=== PATIENT | male | born 1990 | race African-American/Black ===

== ENCOUNTER 2020-06-15 23:50 | Emergency (ER) | payer OTHER ==
[2020-06-15 23:56] VITALS: BP 124/67; PULSE 60; RESP 18; TEMP 98.4
[2020-06-16] MEDS ORDERED: SULFAMETHOX-TMP 800-160MG 1 EACH TAB PO STA (00:21)
[2020-06-16] MEDS ORDERED: CEPHALEXIN 500 MG CAP PO STA (00:21)
--- NOTE | 2020-06-16 00:27 | ED ---
Skin/Abscess/FB HPI - General Chief complaint: Skin/Abscess/Foreign Body Stated complaint: Finger Infection Time Seen by Provider: 06/16/20 00:03 Source: patient Mode of arrival: ambulatory Limitations: no limitations - History of Present Illness Initial comments: Patient is a 29-year-old male presenting to the emergency Department with complaints of a possible skin infection on his right hand. Patient states about one week ago he cut his right pinky finger on a piece of cardboard box. Patient states he has been cleaning the wound daily but states over the past 2 days he noticed swelling and redness starts in his pinky. He states it does hurt to fully flex the pinky but he is able to extend it all the way. He denies any fever or chills, no nausea or vomiting. He is up-to-date with his tetanus vaccine. He has no further complaints at this time. - Related Data Previous Rx's Medication Instructions Recorded Cephalexin [Keflex] 500 mg PO Q6HR 7 Days #28 cap 06/16/20 Sulfamethox-Tmp 800-160Mg [Bactrim 1 each PO Q12HR 7 Days #14 tab 06/16/20 Ds] Allergies Allergy/AdvReac Type Severity Reaction Status Date / Time No Known Allergies Allergy Verified 06/15/20 23:56 Review of Systems ROS Statement: Those systems with pertinent positive or pertinent negative responses have been documented in the HPI. ROS Other: All systems not noted in ROS Statement are negative. Past Medical History Past Medical History: No Reported History History of Any Multi-Drug Resistant Organisms: None Reported Past Surgical History: No Surgical Hx Reported Past Psychological History: No Psychological Hx Reported Smoking Status: Current every day smoker Past Alcohol Use History: Occasional Past Drug Use History: Marijuana General Exam - General Exam Comments Initial Comments: GENERAL: Patient is well-developed and well-nourished. Patient is nontoxic and in no acute distress. HEAD: Atraumatic, normocephalic. EYES: Pupils equal round and reactive to light, extraocular movements intact, sclera anicteric, conjunctiva are normal. Eyelids were unremarkable. ENT: TMs normal, nares patent, oropharynx clear without exudates. Moist mucous membranes. NECK: Normal range of motion, supple without lymphadenopathy or JVD. LUNGS: Unlabored respirations. Breath sounds clear to auscultation bilaterally and equal. No wheezes rales or rhonchi. HEART: Regular rate and rhythm without murmurs, rubs or gallops. ABDOMEN: Soft, nontender, normoactive bowel sounds. No guarding, no rebound. No masses appreciated. : Deferred MUSCULOSKELETAL: Patient has decreased active flexion of the right pinky, full extension. He has neurovascular intact. There is some mild swelling and erythema present of the proximal portion of the fifth digit. No clubbing or cyanosis. NEUROLOGICAL: Patient is alert and oriented x 3. Motor and sensory are also intact. Cranial nerves II through XII grossly intact. Symmetrical smile. Normal speech, normal gait. PSYCH: Normal mood, normal affect. SKIN: Warm, Dry, normal turgor. Patient has some mild erythema and swelling of the proximal portion of the fifth digit of the right hand, there is no swelling of the right hand were no spreading erythema. He has neurovascular intact. There is a small wound to the medial aspect of the fifth digit, this is draining purulent fluid. Limitations: no limitations Course Vital Signs 06/15/20 23:54 Temperature 98.4 F Pulse Rate 60 Respiratory 18 Rate Blood Pressure 124/67 O2 Sat by Pulse 100 Oximetry Medical Decision Making - Medical Decision Making Patient is a 29-year-old male here with cellulitis of the fifth digit of the right hand. He has a small wound from a cardboard box one week ago, noticed swelling and erythema to days ago. No fever or chills, he does have full extension, decrease flexion. I discussed with patient that there is concern for spreading infection into the tendons. Patient states he does not live around here and wishes to start oral antibiotics. He states he'll follow-up with his regular doctor. Patient will be given first dose of Bactrim and Keflex the ER. I will continue him on these 2 medications as well. He is stable for discharge. Strict return parameters were discussed with the patient he verbalizes understanding. Case discussed with Dr. Quach. Disposition Clinical Impression: Cellulitis of right little finger Disposition: HOME SELF-CARE Condition: Stable Instructions (If sedation given, give patient instructions): Cellulitis (ED) Additional Instructions: Please return to the Emergency Department if symptoms worsen or any other concerns. Take both antibiotics as prescribed. Keep area clean and dry. Use warm compresses to the area to initiate further drainage of the wound. Please follow-up with your regular doctor as discussed or local ER if symptoms worsen. Prescriptions: Sulfamethox-Tmp 800-160Mg [Bactrim Ds] 1 each PO Q12HR 7 Days #14 tab Cephalexin [Keflex] 500 mg PO Q6HR 7 Days #28 cap Is patient prescribed a controlled substance at d/c from ED?: No Referrals: None,Stated [Primary Care Provider] - 1-2 days
== END 2020-06-16 00:42 | disposition home or self-care (01) ==
LOC: EC 23:50
DX: L03.011 Cellulitis of right finger (principal); F17.200 Nicotine dependence, unspecified, uncomplicated
CPT/HCPCS: 99283

== ENCOUNTER 2020-06-16 20:02 | Emergency (ER) | payer OTHER ==
[2020-06-16 20:16] VITALS: BP 135/66; PULSE 68; RESP 18; TEMP 98
--- NOTE | 2020-06-16 20:46 | ED ---
Extremity Problem HPI - General Chief complaint: Extremity Problem,Nontraumatic Stated complaint: Finger Injury Time Seen by Provider: 06/16/20 20:37 Source: patient Mode of arrival: ambulatory Limitations: no limitations - History of Present Illness Initial comments: 29-year-old male presenting to the emergency department with a chief complaint of infection of the finger. Patient states he was in emergency department yesterday and started on 2 antibiotics in the emergency department. Patient states she is yet to obtain the prescriptions. Patient states after discharge, he went to sleep and when he woke up the next day, he noticed there was quite pustular discharge coming from the affected side. States it is not painful as it was initially. He denies any numbness or tingling. Denies any night sweats fevers or chills. Denies liver range of motion of the finger. - Related Data Previous Rx's Medication Instructions Recorded Cephalexin [Keflex] 500 mg PO Q6HR #40 cap 06/16/20 Cephalexin [Keflex] 500 mg PO Q6HR 7 Days #28 cap 06/16/20 Sulfamethox-Tmp 800-160Mg [Bactrim 1 each PO Q12HR #20 tab 06/16/20 Ds] Sulfamethox-Tmp 800-160Mg [Bactrim 1 each PO Q12HR 7 Days #14 tab 06/16/20 Ds] Allergies Allergy/AdvReac Type Severity Reaction Status Date / Time No Known Allergies Allergy Verified 06/15/20 23:56 Review of Systems ROS Statement: Those systems with pertinent positive or pertinent negative responses have been documented in the HPI. ROS Other: All systems not noted in ROS Statement are negative. Past Medical History Past Medical History: No Reported History History of Any Multi-Drug Resistant Organisms: None Reported Past Surgical History: No Surgical Hx Reported Past Psychological History: No Psychological Hx Reported Smoking Status: Current every day smoker Past Alcohol Use History: Occasional Past Drug Use History: Marijuana General Exam Limitations: no limitations General appearance: alert, in no apparent distress Head exam: Present: atraumatic, normocephalic, normal inspection Eye exam: Present: normal appearance, PERRL, EOMI Pupils: Present: normal accommodation ENT exam: Present: normal exam, normal oropharynx, mucous membranes moist Neck exam: Present: normal inspection, full ROM. Absent: tenderness Respiratory exam: Present: normal lung sounds bilaterally. Absent: respiratory distress, wheezes, rales Cardiovascular Exam: Present: regular rate, normal rhythm, normal heart sounds Extremities exam: Present: full ROM, tenderness (Very mild), normal capillary refill. Absent: normal inspection (Small abscess noted on the lateral aspect of the right fifth digit. There is already some white pustular discharge noted. No cellulitis.), pedal edema, joint swelling, calf tenderness Back exam: Present: normal inspection, full ROM. Absent: CVA tenderness (R), CVA tenderness (L) Neurological exam: Present: alert, oriented X3 Psychiatric exam: Present: normal affect, normal mood Skin exam: Present: warm, dry, intact, normal color Course Vital Signs 06/16/20 20:12 Temperature 98.0 F Pulse Rate 68 Respiratory 18 Rate Blood Pressure 135/66 O2 Sat by Pulse 97 Oximetry Procedures - Incision & Drainage Consent Obtained: verbal consent Indication: Abscess Site: hand Size (cm): 1 I&D Cleaning Method: Alcohol Wipe Sterile Field Used?: No Scalpel Used: #11 Needle Aspiration Performed?: No Irrigation Performed?: No I&D Drainage Obtained: Pus Culture Obtained?: No Patient Tolerated Procedure: well, no complications Medical Decision Making - Medical Decision Making 29-year-old male presenting to the emergency department with a chief complaint of an infection of the finger. On physical examination, patient has a small abscess forming at the affected site on the medial aspect of the right fifth digit. I used a small 18-gauge needle and was able to perform small incision and drainage. I was able to remove most of the pustular discharge. Patient reported relief in symptoms. Patient is ready on Keflex and Bactrim. I advised him to continue taking the medication. He requested for a second her prescription. Return parameters were thoroughly discussed with patient is understanding and agreeable. Case discussed with physician. Disposition Clinical Impression: Abscess Disposition: HOME SELF-CARE Condition: Stable Instructions (If sedation given, give patient instructions): Abscess (ED) Additional Instructions: Apply warm compresses. Take prescribed medication as directed.Please return to the Emergency Department if symptoms worsen or any other concerns. Prescriptions: Sulfamethox-Tmp 800-160Mg [Bactrim Ds] 1 each PO Q12HR #20 tab Cephalexin [Keflex] 500 mg PO Q6HR #40 cap Is patient prescribed a controlled substance at d/c from ED?: No Referrals: None,Stated [Primary Care Provider] - 1-2 days Time of Disposition: 21:06
[2020-06-16] MEDS ORDERED: SULFAMETH-TMP DS STARTER PACK 2 TAB BTL PO STA (21:05)
[2020-06-16] MEDS ORDERED: CEPHALEXIN 500MG STARTER PACK 4 CAP BTL PO STA (21:05)
== END 2020-06-16 21:17 | disposition home or self-care (01) ==
LOC: EC 20:02
DX: L02.511 Cutaneous abscess of right hand (principal); F17.200 Nicotine dependence, unspecified, uncomplicated
CPT/HCPCS: 10060; 99283